=== PATIENT | male | born 1990 | race Caucasian/White ===

== ENCOUNTER 2019-03-25 12:45 | Emergency (ER) | payer OTHER ==
[~2019-03-25] VITALS: Ht 182.9 cm; Wt 86.2 kg
[2019-03-25] MEDS ORDERED: PROPOFOL 10 MG/ML (20ML) VIAL. IV ONE (13:00)
[2019-03-25] MEDS ORDERED: fentaNYL PF VIAL 100 MCG/2 ML VIAL IVP ONE (13:00)
--- NOTE | 2019-03-25 13:01 | PHYS DOC ---
MODERATE SEDATION ASSESSMENT RISKS/ALTERNATIVES Risks/Alternatives Risks and alternatives of this type of sedation and procedure discussed with: RISK/ALTERNATIVES: Patient H & P ON CHART H & P H & P on chart and reviewed for co-morbid conditions and appropriate labs. H&P ON CHART: Yes STATUS PREG STATUS ASSESSED: N/A MEDS/ALLERGIES REVIEWED Meds/Allergies Reviewed Medications and Allergies including time and route of recently administered narcotics and sedatives. MEDS/ALLERGIES REVIEWED: Yes ASA RATING ASA RATING: I AIRWAY ASSESSMENT Airway Assessment Airway patency, oral function limitations, presence of caps, crowns, dentures, partials, and ability to extend neck assessed. AIRWAY ASSESSMENT: Yes MALLAMPATI SCORE MALLAMPATI SCORE: I PRE-SEDATION ASSESSMENT PRE-SEDATION ASSESSMENT: Yes FLACA BLACK MD Mar 25, 2019 13:01
--- NOTE | 2019-03-25 13:03 | PHYS DOC ---
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 felt a pop in his left shoulder did not fall no head injury no loss of consciousness appear pain radiates to the elbow left side no past medical history last ate at 7 AM brought in by ambulance Review of Systems Review of Systems Constitutional: Denies fever or chills [] Eyes: Denies change in visual acuity, redness, or eye pain [] HENT: Denies nasal congestion or sore throat [] Respiratory: Denies cough or shortness of breath [] Cardiovascular: No additional information not addressed in HPI [] Neurologic: Denies headache, focal weakness or sensory changes [] Endocrine: Denies polyuria or polydipsia [] All other systems were reviewed and found to be within normal limits, except as documented in this note. Current Medications Current Medications Current Medications Medications (Trade) Dose Ordered Sig/Yancy Start Time Stop Time Status Last Admin Dose Admin Fentanyl Citrate (Fentanyl 2ml Vial) 50 mcg 1X ONCE 03/25/19 13:00 03/25/19 13:01 DC 03/25/19 13:04 50 MCG Propofol (Diprivan) 200 mg 1X ONCE 03/25/19 13:00 03/25/19 13:01 DC 03/25/19 13:30 200 MG Allergies Allergies Allergies Coded Allergies Type Severity Reaction Last Updated Verified No Known Drug Allergies 03/25/19 No Physical Exam Physical Exam Constitutional: Well developed, well nourished, moderate distress, non-toxic appearance. [] HENT: Normocephalic, atraumatic, bilateral external ears normal, oropharynx moist, no oral exudates, nose normal. [] Eyes: PERRLA, EOMI, conjunctiva normal, no discharge. [] Neck: Normal range of motion, no tenderness, supple, no stridor. [] Cardiovascular:Heart rate regular rhythm, no murmur [] Lungs & Thorax: Bilateral breath sounds clear to auscultation [] Abdomen: Bowel sounds normal, soft, no tenderness, no masses, no pulsatile masses. [] Skin: Warm, dry, no erythema, no rash. [] ext: left shoulder deformity noted Neurologic: Alert and oriented X 3, normal motor function, normal sensory function, no focal deficits noted. [] Psychologic: Affect normal, judgement normal, mood normal. [] Current Patient Data Vital Signs Vital Signs Date Time Temp Pulse Resp B/P (MAP) Pulse Ox O2 Delivery O2 Flow Rate FiO2 03/25/19 14:00 90 23 132/88 (103) 99 Room Air 03/25/19 13:30 97.9 2.0 97.8 2.0 2.0 EKG EKG [] Radiology/Procedures Radiology/Procedures [] Impressions: smooth. No fracture is evident. Impression: Interval reduction of a previous seen dislocation at the glenohumeral joint. Electronically signed by: Noemy Mae MD (03/25/2019 1:57 PM) [facility] DICTATED and SIGNED BY: NOEMY MAE MD DATE: 03/25/19 0506 Course & Med Decision Making Course & Med Decision Making Pertinent Labs and Imaging studies reviewed. (See chart for details) []procedural sedation note informed consent monitors etco2 oxygen support cont pulse ox monitoring and evaluation advisor pt was observed throughout procedure, propofol given TOTAL 140 ML TOTAL SEADTION TIME 10 MINUTES NO HYPOXIA OR APNEA. shoulder reduction left side usual technique no obviou scomplications confiremd by fang APONTE AFTER PROCEDURE F/U WITH ORTHO BACK IN [place] HE IS LEAVING TOMORROW JUST VISITING HERE. Dragon Disclaimer Njini Disclaimer This electronic medical record was generated, in whole or in part, using a voice recognition dictation system. Departure Departure Impression: Primary Impression: Shoulder dislocation Disposition: 01 HOME, SELF-CARE Condition: STABLE Scripts Hydrocodone/Apap 5-325 (NORCO 5-325 TABLET) 1 Each Tablet 1-2 EACH PO PRN Q6HRS PRN for PAIN, #15 as needed for pain Prov: FLACA BLACK MD 03/25/19 FLACA BLACK MD Mar 25, 2019 13:03
[2019-03-25 13:30] VITALS: BP 149/90
--- NOTE | 2019-03-25 13:41 | RAD ---
Exam performed: Left shoulder 2 views. HISTORY: Trauma. DATE OF SERVICE: 03/25/2019. COMPARISON: None available FINDINGS: There is anterior dislocation of the glenohumeral joint. The humeral head is seen inferior to the glenoid fossa. No definite fracture is apparent. The visualized left lung is clear. IMPRESSION: Anterior dislocation glenohumeral joint. Electronically signed by: Noemy Mae MD (03/25/2019 1:38 PM) [facility]
[2019-03-25 14:00] VITALS: BP 132/88
--- NOTE | 2019-03-25 14:00 | RAD ---
Exam performed:3 views leftshoulder Indication: Posterior reduction Date of service: 03/25/2019. Comparison: Prior x-ray left shoulder performed earlier today Findings :AP radiographs of the shoulder in internal and external rotation as well as a Y-view reveal the osseous structures to be intact and well aligned. The joint space is well-preserved. The articular margins are smooth. No fracture is evident. Impression: Interval reduction of a previous seen dislocation at the glenohumeral joint. Electronically signed by: Noemy Mae MD (03/25/2019 1:57 PM) [facility]
[2019-03-25] MEDS ORDERED: HYDR-3164 PO (14:30)
== END 2019-03-25 14:40 | disposition home or self-care (01) ==
LOC: ER 12:45
DX: S43.085A Other dislocation of left shoulder joint, initial encounter (principal); X50.9XXA Other and unspecified overexertion or strenuous movements or postures, initial encounter; Y93.89 Activity, other specified; Y92.89 Other specified places as the place of occurrence of the external cause; Y99.8 Other external cause status
CPT/HCPCS: 23650; 73030; 99285; J2704; J3010